=== PATIENT | male | born 1950 | race Caucasian/White ===

== ENCOUNTER → 2016-09-06 | Outpatient (CLI) | payer MEDICARE, OTHER ==
[~2016-09-06] MED LIST: ACID RELIEF200 MG PO; ASPIRIN81 M1 PO; AZULFIDINE500 M1 PO; HYDROCHLOROTHIA25 MG PO; LEVAQUIN PO; LIALDA; LIPITOR; LIPITOR20 MG PO; LOPRESSOR PO; LOTREL 5-20 MG1 CAP PO; LOTREL 5/20 MG1 CAP PO; METOPROLOL TAR25 MG PO; NO MEDS; NORVASC10 MG PO; PERCOCET 5-3251 TAB PO; PRILOSEC20 M1 PO
[2016-09-06 11:41] LABS: ALBUMIN SERUM 3.8 g/dL (3.5-5.0); ALKALINE PHOSPHATASE 38 U/L (32-92); ALT (SGPT) 17 U/L (10-40); AST (SGOT) 18 U/L (10-42); BILIRUBIN,TOTAL 0.9 mg/dL (0.2-2.0); BLOOD UREA NITROGEN 22 mg/dL (9-23); BUN/CREATININE RATIO 24.44; CARBON DIOXIDE 25 mmol/L (22-31); CHLORIDE 108 mmol/L (100-111); CHOLESTEROL 116 mg/dL (0-200); CREATININE SERUM 0.9 mg/dL (0.6-1.4); GLOM FILT RATE Estimated ABOVE60 mL/min (>60); GLUCOSE FASTING 109 mg/dL (70-110); HDL CHOLESTEROL 33 mg/dL (29-75); LDL CHOLESTEROL 72 mg/dL (-130); LDL/HDL RATIO 2 RATIO (0-4); POTASSIUM 4.9 mmol/L (3.5-5.1); PROTEIN TOTAL SERUM 7.1 g/dL (6.0-8.3); SODIUM 135 mmol/L (135-145); TRIGLYCERIDES 53 mg/dL (10-160)
[2016-09-08 07:02] LABS: MICROALB UR (PNL) 0.7 mg/dL (***)
== END | disposition home or self-care (01) ==
LOC: CLAB 10:11
PROVIDERS: Internal Medicine Endocrinology, Diabetes & Metabolism
DX: E78.5 Hyperlipidemia, unspecified (principal); E11.65 Type 2 diabetes mellitus with hyperglycemia; I10 Essential (primary) hypertension; Z98.61 Coronary angioplasty status
CPT/HCPCS: 36415; 80053; 80061; 82043; 82570; 83036

== ENCOUNTER → 2017-01-10 | Outpatient (CLI) | payer MEDICARE, OTHER ==
[2017-01-10 11:53] LABS: CALCIUM SERUM 9.2 mg/dL (8.4-10.2); POTASSIUM 4.8 mmol/L (3.5-5.1)
== END | disposition home or self-care (01) ==
LOC: CLAB 10:16
PROVIDERS: Internal Medicine Endocrinology, Diabetes & Metabolism
DX: E11.9 Type 2 diabetes mellitus without complications (principal); Z98.61 Coronary angioplasty status
CPT/HCPCS: 36415; 80048; 83036

== ENCOUNTER 2017-01-20 11:34 | Emergency (ER) | payer OTHER ==
[~2017-01-20] VITALS: Ht 175.3 cm; Wt 79.4 kg
== END 2017-01-20 12:25 | disposition home or self-care (01) ==
LOC: CED 11:34
DX: M54.9 Dorsalgia, unspecified (principal); I10 Essential (primary) hypertension; Z79.82 Long term (current) use of aspirin; Z79.899 Other long term (current) drug therapy
CPT/HCPCS: 96372; 99283; J1885